=== PATIENT | male | born 1960 | race Caucasian/White ===

== ENCOUNTER 2023-08-02 15:09 | Outpatient (RCR) | payer OTHER, SELFPAY ==
[2023-07-19 15:38] LABS: Glucose - Point of Care 121 mg/dl (70-99)
[2023-07-19 16:17] LABS: Glucose - Point of Care 103 mg/dl (70-99)
[2023-07-24 13:08] LABS: Glucose - Point of Care 137 mg/dl (70-99)
[2023-07-24 14:02] LABS: Glucose - Point of Care 115 mg/dl (70-99)
[2023-07-26 13:10] LABS: Glucose - Point of Care 161 mg/dl (70-99)
[2023-07-26 14:04] LABS: Glucose - Point of Care 110 mg/dl (70-99)
[2023-07-28 13:21] LABS: Glucose - Point of Care 126 mg/dl (70-99)
[2023-07-28 14:22] LABS: Glucose - Point of Care 97 mg/dl (70-99)
[2023-07-31 13:19] LABS: Glucose - Point of Care 119 mg/dl (70-99)
[2023-07-31 14:16] LABS: Glucose - Point of Care 116 mg/dl (70-99)
[2023-08-02 13:15] LABS: Glucose - Point of Care 139 mg/dl (70-99)
[2023-08-02 14:12] LABS: Glucose - Point of Care 91 mg/dl (70-99)
== END 2023-08-02 23:59 | disposition home or self-care (01) ==
LOC: CRHB 15:09
PROVIDERS: ATTENDING PHYSICIAN Internal Medicine
DX: I25.10 Atherosclerotic heart disease of native coronary artery without angina pectoris (principal); Z95.5 Presence of coronary angioplasty implant and graft; I25.2 Old myocardial infarction
CPT/HCPCS: 82962; G0422; G0423

== ENCOUNTER 2023-08-30 14:56 | Outpatient (RCR) | payer OTHER, SELFPAY | END 2023-08-30 23:59 | disposition home or self-care (01) | LOC: CRHB 14:56 | PROVIDERS: ATTENDING PHYSICIAN Internal Medicine | DX: I25.10 Atherosclerotic heart disease of native coronary artery without angina pectoris (principal); Z95.5 Presence of coronary angioplasty implant and graft; I25.2 Old myocardial infarction | CPT/HCPCS: G0422; G0423 ==

== ENCOUNTER 2023-09-29 13:19 | Outpatient (RCR) | payer OTHER, SELFPAY | END 2023-09-29 23:59 | disposition home or self-care (01) | LOC: CRHB 13:19 | PROVIDERS: ATTENDING PHYSICIAN Internal Medicine | DX: I25.2 Old myocardial infarction (principal); Z95.5 Presence of coronary angioplasty implant and graft; I25.10 Atherosclerotic heart disease of native coronary artery without angina pectoris | CPT/HCPCS: G0422; G0423 ==

== ENCOUNTER 2023-10-11 15:29 | Outpatient (RCR) | payer OTHER, SELFPAY | END 2023-10-11 23:59 | disposition home or self-care (01) | LOC: CRHB 15:29 | PROVIDERS: ATTENDING PHYSICIAN Internal Medicine | DX: I21.4 Non-ST elevation (NSTEMI) myocardial infarction (principal); Z95.5 Presence of coronary angioplasty implant and graft | CPT/HCPCS: G0422; G0423 ==

== ENCOUNTER → 2023-11-10 10:22 | Outpatient (REF) | payer OTHER, SELFPAY | LOC: RAD 10:22 | PROVIDERS: ATTENDING PHYSICIAN Physician Assistant | DX: K75.81 Nonalcoholic steatohepatitis (NASH) (principal); R10.9 Unspecified abdominal pain; M54.9 Dorsalgia, unspecified | CPT/HCPCS: 74177; Q9967 ==

== ENCOUNTER → 2023-11-24 07:31 | Outpatient (REF) | payer OTHER, SELFPAY ==
[2023-11-24] MEDS: LEXISCAN 0.400000000000000022 MG IV (10:05)
== END ==
LOC: RCS 07:31
PROVIDERS: ATTENDING PHYSICIAN Nurse Practitioner; FAMILY PHYSICIAN Physician Assistant
DX: R06.02 Shortness of breath (principal); I25.10 Atherosclerotic heart disease of native coronary artery without angina pectoris; I45.10 Unspecified right bundle-branch block; R07.89 Other chest pain
CPT/HCPCS: 78452; 93017; A9500; J2785

== ENCOUNTER 2023-12-07 09:28 | Day surgery (SDC) | payer OTHER, SELFPAY ==
[2023-12-07] VITALS (10 sets, daily range): BP systolic 104–122; BP diastolic 61–74; BMI 42.8
[2023-12-07] MEDS: NSS 361 ML IV (10:19)
--- NOTE | 2023-12-07 11:11 | ITS.CL.CATH ---
[facility] - Catheterization
Cardiac Catheterization
Procedure Report:
CARDIAC CATHETERIZATION REPORT
Date of Procedure: 12/07/2023
Referring: William Wright MD
Indication: Exertional dyspnea
HEMODYNAMIC DATA
AO: 128/71
LV: 128/17
LEFT VENTRICULOGRAPHY: Severe apical hypokinesis with EF 49%
CORONARY ANGIOGRAPHY
Dominance: Right
Left Main: Normal
LAD: 20-30% mid LAD stenosis just proximal to the origin of a stented segment (MARY 06/2023). The stent itself is widely patent with no restenosis. There is a widely patent distal LAD stent.There is 70% apical LAD stenosis. This segment was poorly
visualized on the prior study so it is not possible to know whether this is new.
Circumflex: The circumflex gives rise to small OM1, a large OM 2, and terminates with a small OM 3 and a tiny left posterolateral branch. There is 30% stenosis in the mid circumflex proximal to OM 3.
RCA: The RCA has a high anterior takeoff. An AL-1 diagnostic catheter was used to select the vessel. There is diffuse calcification of the RCA with 20% mid stenosis. The RPDA is occluded in the midportion. This vessel was poorly visualized on
the diagnostic angiogram from June 2023 as the RCA was not selectively engaged at that visit. Therefore it is not completely clear that the occlusion is old; however, does appear to be old on the nonselective angiograms obtained in June
2022. There are three large right posterolateral branches without significant disease
Closure Device: None-the procedure was performed via the right radial artery. The Benedicto's test was normal prior to the procedure.
Radiation (mGy): 491
DAP (cm2.Gy): 33.0
Fluoroscopy time: 5.4 minutes
CONCLUSIONS
1: Severe apical hypokinesis with EF 49%
2: Mild residual CAD with patent mid and distal LAD stents placed in June 2023
3. Continue medical therapy. DAPT to continue to complete 12-month course from the time of June 2023 then aspirin monotherapy
Copy to: William Wright MD, Belle Zamarripa PA-C
David Betancourt MD, FAC, [facility]
[2023-12-07] MEDS: NSS 1000 IV (11:55)
== END 2023-12-07 14:07 | disposition home or self-care (01) ==
LOC: CATH 09:28
PROVIDERS: ATTENDING PHYSICIAN Internal Medicine Cardiovascular Disease; FAMILY PHYSICIAN Physician Assistant; OTHER PHYSICIAN Internal Medicine
DX: I25.10 Atherosclerotic heart disease of native coronary artery without angina pectoris (principal); R06.09 Other forms of dyspnea; Z95.5 Presence of coronary angioplasty implant and graft; I45.10 Unspecified right bundle-branch block; R07.89 Other chest pain; I47.11 Inappropriate sinus tachycardia, so stated; E78.00 Pure hypercholesterolemia, unspecified; K74.60 Unspecified cirrhosis of liver; E11.9 Type 2 diabetes mellitus without complications; Z79.82 Long term (current) use of aspirin; Z79.84 Long term (current) use of oral hypoglycemic drugs; Z79.85 Long-term (current) use of injectable non-insulin antidiabetic drugs
CPT/HCPCS: 93458; C1894; Q9967

== ENCOUNTER → 2023-12-19 09:28 | Outpatient (REF) | payer OTHER, SELFPAY | LOC: PAVMRI 09:28 | PROVIDERS: ATTENDING PHYSICIAN Physical Medicine & Rehabilitation | DX: M48.062 Spinal stenosis, lumbar region with neurogenic claudication (principal); M54.59 Other low back pain; M54.16 Radiculopathy, lumbar region; M47.816 Spondylosis without myelopathy or radiculopathy, lumbar region; G89.4 Chronic pain syndrome; M21.379 Foot drop, unspecified foot | CPT/HCPCS: 72148 ==

== ENCOUNTER → 2024-02-12 06:24 | Day surgery (SDC) | payer OTHER, SELFPAY ==
[2024-02-12 08:12] LABS: Glucose - Point of Care 145 mg/dl (70-99)
== END ==
LOC: GI 06:24
PROVIDERS: ATTENDING PHYSICIAN Internal Medicine Gastroenterology
DX: K74.60 Unspecified cirrhosis of liver (principal); K22.89 Other specified disease of esophagus
CPT/HCPCS: 43235; 82962

== ENCOUNTER → 2024-06-13 10:21 | Outpatient (REF) | payer OTHER, SELFPAY | LOC: RAD 10:21 | PROVIDERS: ATTENDING PHYSICIAN Internal Medicine Gastroenterology | DX: K76.0 Fatty (change of) liver, not elsewhere classified (principal); K74.69 Other cirrhosis of liver | CPT/HCPCS: 76700 ==

== ENCOUNTER → 2024-07-18 12:21 | Outpatient (REF) | payer OTHER, SELFPAY | LOC: RAD 12:21 | PROVIDERS: ATTENDING PHYSICIAN Physician Assistant | DX: M25.561 Pain in right knee (principal); M25.571 Pain in right ankle and joints of right foot | CPT/HCPCS: 73564; 73610 ==

== ENCOUNTER → 2025-01-17 10:07 | Outpatient (REF) | payer OTHER, SELFPAY | LOC: RAD 10:07 | PROVIDERS: ATTENDING PHYSICIAN Internal Medicine Gastroenterology; FAMILY PHYSICIAN Physician Assistant | DX: K74.69 Other cirrhosis of liver (principal) | CPT/HCPCS: 76700 ==

== ENCOUNTER → 2025-06-02 12:20 | Outpatient (REF) | payer OTHER, SELFPAY | LOC: RAD 12:20 | PROVIDERS: ATTENDING PHYSICIAN Student in an Organized Health Care Education/Training Program; FAMILY PHYSICIAN Physician Assistant | DX: M25.552 Pain in left hip (principal) | CPT/HCPCS: 73502 ==

== ENCOUNTER 2025-06-17 06:25 | Day surgery (SDC) | payer OTHER, SELFPAY ==
[2025-06-17 08:41] LABS: Glucose - Point of Care 117 mg/dl (70-99)
== END 2025-06-17 10:28 | disposition home or self-care (01) ==
LOC: GI 06:25
PROVIDERS: ATTENDING PHYSICIAN Internal Medicine Gastroenterology; FAMILY PHYSICIAN Physician Assistant
DX: Z12.11 Encounter for screening for malignant neoplasm of colon (principal); K64.9 Unspecified hemorrhoids; K57.30 Diverticulosis of large intestine without perforation or abscess without bleeding; D17.5 Benign lipomatous neoplasm of intra-abdominal organs; K74.60 Unspecified cirrhosis of liver; K22.89 Other specified disease of esophagus; K31.89 Other diseases of stomach and duodenum; K63.89 Other specified diseases of intestine; K76.6 Portal hypertension; D12.5 Benign neoplasm of sigmoid colon; Z98.890 Other specified postprocedural states; Z86.0100 Personal history of colon polyps, unspecified
CPT/HCPCS: 45380; 45381; 43239; 82962; 88305; 88342